=== PATIENT | male | born 1995 | race Hispanic/Latino ===

== ENCOUNTER 2019-03-09 18:37 | Emergency (ER) | payer OTHER ==
[~2019-03-09] VITALS: Ht 162.6 cm; Wt 81.8 kg
[2019-03-09 18:37] VITALS: BP 157/88
[2019-03-09] MEDS ORDERED: AMOX500C PO (20:01)
== END 2019-03-09 20:14 | disposition home or self-care (01) ==
LOC: M ED 18:37
DX: H72.91 Unspecified perforation of tympanic membrane, right ear (principal); W50.0XXA Accidental hit or strike by another person, initial encounter; Y99.1 Military activity; F17.200 Nicotine dependence, unspecified, uncomplicated

== ENCOUNTER 2019-05-21 18:29 | Emergency (ER) | payer OTHER ==
[~2019-05-21] VITALS: Ht 162.6 cm; Wt 84.1 kg
[~2019-05-21 18:29] MED LIST: AMOX500C PO
[2019-05-21 20:54] VITALS: BP 132/72
== END 2019-05-21 20:58 | disposition home or self-care (01) ==
LOC: M ED 18:29
DX: J02.9 Acute pharyngitis, unspecified (principal); R51 Headache; F17.210 Nicotine dependence, cigarettes, uncomplicated